=== PATIENT | female | born 1965 | race Caucasian/White ===

== ENCOUNTER → 2016-10-15 | Outpatient (CLI) | payer OTHER ==
[~2016-10-15] MED LIST: MULT1TAB60 PO; OMNIPAQUE 350 MG/ML, 100ML BOTTLE ONE; OXYC5CAP4 PO; PHENERGAN 25 MG; VENL150C6 PO
== END | disposition home or self-care (01) ==
LOC: RAD 06:57
PROVIDERS: ATTEND Internal Medicine Gastroenterology
DX: K85.90 Acute pancreatitis without necrosis or infection, unspecified (principal); N28.9 Disorder of kidney and ureter, unspecified; K82.8 Other specified diseases of gallbladder; K21.9 Gastro-esophageal reflux disease without esophagitis; J98.11 Atelectasis; K86.3 Pseudocyst of pancreas; E78.1 Pure hyperglyceridemia
CPT/HCPCS: 74160; Q9967

== ENCOUNTER → 2016-11-26 | Outpatient (CLI) | payer OTHER | END | disposition home or self-care (01) | LOC: CFH 14:00 | PROVIDERS: ATTEND Internal Medicine Gastroenterology | DX: K86.3 Pseudocyst of pancreas (principal) | CPT/HCPCS: 74177; Q9967 ==

== ENCOUNTER → 2017-01-11 | Outpatient (CLI) | payer OTHER ==
[~2017-01-11] MED LIST changes: +FENO145T32 PO; +HYDR-3144 PO; +LIPA1CAP22 PO; +LIPA1CAP48 PO; -OMNIPAQUE 350 MG/ML, 100ML BOTTLE ONE
== END | disposition home or self-care (01) ==
LOC: STAR 09:35
PROVIDERS: ATTEND Internal Medicine Gastroenterology
DX: Z02.9 Encounter for administrative examinations, unspecified (principal)

== ENCOUNTER 2017-01-17 10:59 | Day surgery (SDC) | payer OTHER ==
[~2017-01-17] VITALS: Ht 175.3 cm; Wt 73.2 kg
[2017-01-17] MEDS ORDERED: LIDOCAINE 1%, 2ML ONE (11:29)
[2017-01-17 11:48] VITALS: BP 139/86
[2017-01-17 11:49] VITALS: BP 139/86
[2017-01-17] MEDS ORDERED: MIDAZOLAM 1 MG/ML, 2ML ONE (12:20)
[2017-01-17] MEDS ORDERED: FENTANYL PF 250 MCG/5ML ONE (12:21)
[2017-01-17] MEDS ORDERED: PIPERACILLIN/TAZO/PMX 3.375GM 50 ML ONE (12:37)
[2017-01-17] MEDS ORDERED: CHLORHEXIDINE MOUTHWASH 15 ML UDC ONE ×2 (12:40→12:41)
[2017-01-17] MEDS ORDERED: SUCCINYLCHOLINE 20 MG/ML, 10ML ONE (12:54)
[2017-01-17] MEDS ORDERED: DEXAMETHASONE 4 MG/ML, 1ML ONE (12:54)
[2017-01-17] MEDS ORDERED: PROPOFOL 10 MG/ML, 20ML ONE (12:54)
[2017-01-17] MEDS ORDERED: ONDANSETRON 2MG/ML, 2ML ONE (12:54)
[2017-01-17] MEDS ORDERED: ALBUTEROL SULFATE 2.5 MG/3 ML NPPB PRN (13:30)
[2017-01-17] MEDS ORDERED: ONDANSETRON 2MG/ML, 2ML IVPush PRN (13:30)
[2017-01-17] MEDS ORDERED: HYDROcodone/APAP 7.5-325MG/15ML UDC PO PRN (13:30)
[2017-01-17] MEDS ORDERED: EPHEDRINE 50 MG/ML, 1ML IVPush PRN (13:30)
[2017-01-17] MEDS ORDERED: PROMETHAZINE 25 MG/ML, 1ML IV PRN (13:30)
[2017-01-17] MEDS ORDERED: METOCLOPRAMIDE 5 MG/ML, 2ML IV PRN (13:30)
[2017-01-17] MEDS ORDERED: HYDROmorphone 1 MG/ML, 1ML IV PRN (13:30)
[2017-01-17] MEDS ORDERED: hydrALAzine 20 MG/ML, 1ML IV PRN (13:30)
[2017-01-17] MEDS ORDERED: MIDAZOLAM 1 MG/ML, 2ML IV PRN (13:30)
[2017-01-17] MEDS ORDERED: LABETALOL 5MG/ML, 20ML IV PRN (13:30)
[2017-01-17] MEDS ORDERED: FENTANYL PF 100 MCG/2ML IV PRN (13:30)
[2017-01-17] MEDS ORDERED: MEPERIDINE/PF 25MG/0.5ML IVPush PRN (13:30)
== END 2017-01-17 15:20 ==
LOC: OUT 10:59
PROVIDERS: ATTEND Internal Medicine Gastroenterology
DX: K86.3 Pseudocyst of pancreas (principal); K86.89 Other specified diseases of pancreas; Z98.890 Other specified postprocedural states
CPT/HCPCS: 43240; 48999; C1725; C1769; C1874; J0330; J1100; J2250; J2405; J2543; J2704; J3010

== ENCOUNTER → 2017-01-24 | Outpatient (CLI) | payer OTHER ==
[~2017-01-24] MED LIST changes: +OMNIPAQUE 350 MG/ML, 100ML BOTTLE ONE
== END | disposition home or self-care (01) ==
LOC: CFH 14:11
PROVIDERS: ATTEND Internal Medicine Gastroenterology
DX: K86.3 Pseudocyst of pancreas (principal); Z95.828 Presence of other vascular implants and grafts
CPT/HCPCS: 74160; Q9967

== ENCOUNTER 2017-02-06 10:17 | Day surgery (SDC) | payer OTHER ==
[~2017-02-06] VITALS: Ht 175.3 cm; Wt 71.5 kg
[~2017-02-06 10:17] MED LIST changes: -OMNIPAQUE 350 MG/ML, 100ML BOTTLE ONE
[2017-02-06] MEDS ORDERED: LACTATED RINGERS 1,000 ML IV SCH (10:51)
[2017-02-06 11:24] VITALS: BP 111/79
[2017-02-06] MEDS ORDERED: MIDAZOLAM 1 MG/ML, 2ML ONE (12:47)
[2017-02-06] MEDS ORDERED: PIPERACILLIN/TAZO/PMX 3.375GM 50 ML ONE (12:56)
[2017-02-06] MEDS ORDERED: ACETAMINOPHEN 325 MG TABLET PO PRN (13:30)
[2017-02-06] MEDS ORDERED: ALBUTEROL SULFATE 2.5 MG/3 ML NPPB PRN (13:30)
[2017-02-06] MEDS ORDERED: METOPROLOL 1 MG/ML, 5ML IV PRN (13:30)
[2017-02-06] MEDS ORDERED: MEPERIDINE/PF 25MG/0.5ML IVPush PRN (13:30)
[2017-02-06] MEDS ORDERED: HYDROcodone/APAP 7.5-325MG/15ML UDC PO PRN (13:30)
[2017-02-06] MEDS ORDERED: HYDROmorphone 1 MG/ML, 1ML IV PRN (13:30)
[2017-02-06] MEDS ORDERED: hydrALAzine 20 MG/ML, 1ML IV PRN (13:30)
[2017-02-06] MEDS ORDERED: OXYcodone 5 MG/5 ML ORAL.SOL UDC PO PRN (13:30)
[2017-02-06] MEDS ORDERED: LABETALOL 5MG/ML, 20ML IV PRN (13:30)
[2017-02-06] MEDS ORDERED: MIDAZOLAM 1 MG/ML, 2ML IV PRN (13:30)
[2017-02-06] MEDS ORDERED: PROMETHAZINE 25 MG/ML, 1ML IV PRN (13:30)
[2017-02-06] MEDS ORDERED: FENTANYL PF 100 MCG/2ML IV PRN (13:30)
[2017-02-06] MEDS ORDERED: ONDANSETRON 2MG/ML, 2ML IVPush PRN (13:30)
[2017-02-06] MEDS ORDERED: EPHEDRINE 50 MG/ML, 1ML IVPush PRN (13:30)
[2017-02-06] MEDS ORDERED: PROPOFOL 10 MG/ML, 50ML ONE (16:08)
[2017-02-06] MEDS ORDERED: KETOROLAC 30 MG/1 ML ONE (16:08)
[2017-02-06] MEDS ORDERED: ONDANSETRON 2MG/ML, 2ML ONE (16:08)
[2017-02-06] MEDS ORDERED: DEXAMETHASONE 4 MG/ML, 1ML ONE (16:08)
== END 2017-02-06 15:50 ==
LOC: OUT 10:17
PROVIDERS: ATTEND Internal Medicine Gastroenterology
DX: K86.2 Cyst of pancreas (principal); K86.89 Other specified diseases of pancreas; E78.1 Pure hyperglyceridemia; K85.90 Acute pancreatitis without necrosis or infection, unspecified; K21.9 Gastro-esophageal reflux disease without esophagitis
CPT/HCPCS: 43274; 48999; C1769; C1894; C2625; J1100; J1885; J2250; J2405; J2543; J2704; J7120

== ENCOUNTER → 2017-02-19 | Outpatient (CLI) | payer OTHER ==
[~2017-02-19] MED LIST changes: -HYDR-3144 PO; +HYDR-3245 PO; +OMNIPAQUE 350 MG/ML, 100ML BOTTLE ONE; +OXYC5CAP2 PO; -OXYC5CAP4 PO
== END | disposition home or self-care (01) ==
LOC: CFH 15:16
PROVIDERS: ATTEND Internal Medicine Gastroenterology
DX: Z46.82 Encounter for fitting and adjustment of non-vascular catheter (principal); K86.3 Pseudocyst of pancreas; K85.90 Acute pancreatitis without necrosis or infection, unspecified; G89.29 Other chronic pain
CPT/HCPCS: 74177; Q9967

== ENCOUNTER 2017-02-21 06:14 | Day surgery (SDC) | payer OTHER ==
[~2017-02-21] VITALS: Ht 175.3 cm; Wt 73.1 kg
[~2017-02-21 06:14] MED LIST changes: -OMNIPAQUE 350 MG/ML, 100ML BOTTLE ONE
[2017-02-21] MEDS ORDERED: LACTATED RINGERS 1,000 ML IV SCH (06:54)
[2017-02-21 07:13] VITALS: BP 119/78
[2017-02-21] MEDS ORDERED: FENTANYL PF 100 MCG/2ML ONE (07:51)
[2017-02-21] MEDS ORDERED: MIDAZOLAM 1 MG/ML, 2ML ONE (07:51)
[2017-02-21] MEDS ORDERED: PROPOFOL 10 MG/ML, 20ML ONE (08:00)
[2017-02-21] MEDS ORDERED: PROPOFOL 10 MG/ML, 50ML ONE (08:00)
[2017-02-21] MEDS ORDERED: PIPERACILLIN/TAZO/PMX 3.375GM 50 ML ONE (08:14)
[2017-02-21] MEDS ORDERED: FENTANYL PF 100 MCG/2ML IV PRN (08:30)
[2017-02-21] MEDS ORDERED: METOPROLOL 1 MG/ML, 5ML IV PRN (08:30)
[2017-02-21] MEDS ORDERED: HYDROmorphone 1 MG/ML, 1ML IV PRN (08:30)
[2017-02-21] MEDS ORDERED: PROMETHAZINE 25 MG/ML, 1ML IV PRN (08:30)
[2017-02-21] MEDS ORDERED: hydrALAzine 20 MG/ML, 1ML IV PRN (08:30)
[2017-02-21] MEDS ORDERED: OXYcodone 5 MG/5 ML ORAL.SOL UDC PO PRN (08:30)
[2017-02-21] MEDS ORDERED: ACETAMINOPHEN 325 MG TABLET PO PRN (08:30)
[2017-02-21] MEDS ORDERED: MEPERIDINE/PF 25MG/0.5ML IVPush PRN (08:30)
[2017-02-21] MEDS ORDERED: ALBUTEROL SULFATE 2.5 MG/3 ML NPPB PRN (08:30)
[2017-02-21] MEDS ORDERED: MIDAZOLAM 1 MG/ML, 2ML IV PRN (08:30)
== END 2017-02-21 10:00 | disposition home or self-care (01) ==
LOC: OUT 06:14
PROVIDERS: ATTEND Internal Medicine Gastroenterology
DX: K85.90 Acute pancreatitis without necrosis or infection, unspecified (principal); K86.3 Pseudocyst of pancreas; K21.9 Gastro-esophageal reflux disease without esophagitis; E78.5 Hyperlipidemia, unspecified
CPT/HCPCS: 43247; 43266; 48999; C1769; C1894; C2625; J2250; J2543; J2704; J3010; J7120